=== PATIENT | male | born 1980 | race Caucasian/White ===

== ENCOUNTER 2017-04-06 16:01 | Emergency (ER) | payer BC ==
[2017-04-06 16:29] VITALS: BP 149/83
--- NOTE | 2017-04-06 16:56 | UC ---
Lower Extremity/Ankle HPI - HPI Summary HPI Summary: Noticed red area to R ankle 3 days ago, did not have significant pain or itching. Since then area has grown in size, become hot and sensitive, and pt has a fever today. No known tick bite or insect sting. Is comfortable wearing socks and shoes. - History of Current Complaint Chief Complaint: UCLowerExtremity Stated Complaint: BUG BITE,SWELLING,FEVER Time Seen by Provider: 04/06/17 16:28 Hx Obtained From: Patient Onset/Duration: Gradual Onset, Lasting Days Severity Initially: Mild Severity Currently: Moderate Aggravating Factor(s): Nothing Alleviating Factor(s): OTC Meds Able to Bear Weight: Yes - Allergies/Home Medications Allergies/Adverse Reactions: Allergies Allergy/AdvReac Type Severity Reaction Status Date / Time Codeine Allergy ANAPHYLAXIS Verified 04/06/17 16:29 Home Medications: Home Medications Ibuprofen TAB* [Advil TAB*] 800 mg PO PRN 04/06/17 [History] diPHENhydraMINE PO* [Benadryl PO 25 MG TAB*] 25 mg PO PRN 04/06/17 [History] PMH/Surg Hx/FS Hx/Imm Hx Previously Healthy: Yes - Surgical History Surgical History: Yes Surgery Procedure, [facility] and [facility] [facility]. NASAL FX 2006, [facility]. 2011, WISDOM TEETH, [facility], LEFT WRIST ORIF - Family History Known Family History: Negative: Blood Disorder - Social History Occupation: Employed Full-time Alcohol Use: Weekly Alcohol Amount: 2 DRINKS/WEEK Substance Use Type: None Smoking Status (MU): Never Smoked Tobacco Review of Systems Constitutional: Fever, Chills, Fatigue Skin: Rash Eyes: Negative ENT: Negative Respiratory: Negative Cardiovascular: Negative Gastrointestinal: Negative Genitourinary: Negative Motor: Negative Neurovascular: Negative Musculoskeletal: Negative Neurological: Negative Psychological: Negative All Other Systems Reviewed And Are Negative: Yes Physical Exam Triage Information Reviewed: Yes Appearance: Well-Appearing, Well-Nourished Vital Signs: Initial Vital Signs Temp 101 F 04/06/17 16:26 Pulse 94 04/06/17 16:26 Resp 16 04/06/17 16:26 BP 149/83 04/06/17 16:26 Pulse Ox 100 04/06/17 16:26 Vital Signs Reviewed: Yes Eye Exam: Normal Eyes: Positive: Conjunctiva Clear ENT Exam: Normal ENT: Positive: Normal ENT inspection, Hearing grossly normal, Pharynx normal, TMs normal Dental Exam: Normal Neck exam: Normal Neck: Positive: Supple, Nontender, No Lymphadenopathy Respiratory Exam: Normal Respiratory: Positive: Chest non-tender, Lungs clear, Normal breath sounds, No respiratory distress, No accessory muscle use Cardiovascular: Positive: No Murmur, Tachycardia Musculoskeletal Exam: Normal Musculoskeletal: Positive: Strength Intact, ROM Intact Neurological Exam: Normal Psychological Exam: Normal Skin: Positive: rashes - round red spot R medial ankle approx 15cm in diameter Lower Extremity Course/Dx - Differential Dx/Diagnosis Provider Diagnoses: early localized Lyme disease Discharge - Discharge Plan Condition: Stable Disposition: HOME Prescriptions: DOXYcycline CAP(*) [DOXYcycline 100MG CAP(*)] 100 mg PO BID #28 cap Patient Education Materials: Lyme Disease (ED), Doxycycline (By mouth) Referrals: Idris Vieyra MD [Primary Care Provider] - Additional Instructions: FOLLOW-UP CARE: You should contact your private physician for follow-up care if you have persistent fever or increasing redness/pain. If you are unable to get a timely appointment, or if you are worsening, call us or return for re-evaluation.
== END 2017-04-06 16:50 | disposition home or self-care (01) ==
LOC: UCEAST 16:01
DX: A69.20 Lyme disease, unspecified (principal); S90.561A Insect bite (nonvenomous), right ankle, initial encounter; W57.XXXA Bitten or stung by nonvenomous insect and other nonvenomous arthropods, initial encounter
CPT/HCPCS: 99212; G0463